=== PATIENT | male | born 1980 | race Hispanic/Latino ===

== ENCOUNTER 2020-03-02 08:27 | Inpatient (IN) | payer OTHER ==
[2020-03-02] MEDS ORDERED: methylPREDNISolone Sod Succ/PF 125 MG/2 ML VIAL ONE (09:17)
[2020-03-02] MEDS ORDERED: Ondansetron PF 4 MG/2 ML Vial ONE (09:17)
[2020-03-02] MEDS ORDERED: Azithromycin 500 MG VIAL ONE (09:17)
[2020-03-02] MEDS ORDERED: cefTRIAXone\\ROCEPHIN 2 GM VIAL ONE (09:17)
--- NOTE | 2020-03-02 09:22 | RAD ---
XR Chest 1 View Portable History: Shortness of breath Comparison: None. Findings: Lungs are hypoinflated with high-grade vascular crowding. Heart size is enlarged. No pneumo thorax. Possible airspace consolidation throughout the lungs. Impression: High-grade lung hypoinflation with possible peripheral airspace opacities. Repeat 2 views with full inspiration is recommended.
[2020-03-02] MEDS ORDERED: Albuterol 200 PUFF (6.7GM INHALER) ONE (09:47)
[2020-03-02 09:48] LABS: Hemoglobin 15.2 g/dL (14.0-18.0); Mean Corpuscular Volume 94.3 fL (78.0-98.0); Red Blood Cell (RBC) Count 4.75 mill/uL (4.70-6.10); White Blood Cell (WBC) Count 6.7 thou/uL (4.8-10.8)
[2020-03-02 09:56] LABS: ALT (SGPT) 39 U/L (8-55); AST (SGOT) 35 U/L (5-34); Alkaline Phosphatase 66 U/L (40-110); Anion Gap 15 mmol/L (10-20); BUN (Urea Nitrogen) 7 mg/dL (8.9-20.6); Bilirubin, Total 0.6 mg/dL (0.2-1.2); CK (CPK) 209 U/L (30-200); Calc. Creatinine Clearance 0 mL/min (70-130); Calcium 8.3 mg/dL (7.8-10.44); Carbon Dioxide 24 mmol/L (22-29); Chloride 100 mmol/L (98-107); Estimated GFR-MDRD Greater than 90; Globulin 2.7 g/dL (2.4-3.5); Glucose 111 mg/dL (70-105); Magnesium 1.6 mg/dL (1.6-2.6); Potassium 4.3 mmol/L (3.5-5.1); Protein, Total 6.7 g/dL (6.0-8.3); Sodium 135 mmol/L (136-145)
[2020-03-02 10:00] LABS: #Lymphocytes 0.9 thou/uL (1.20-3.40); #Monocytes 0.6 thou/uL (0.11-0.59); #Neutrophils 5.2 thou/uL (1.40-6.50); %Basophils 0.1 % (0.0-1.0); %Eosinophils 0.1 % (0.0-10.0); %Lymphocytes 12.6 % (21.0-51.0); %Monocytes 9.4 % (0.0-10.0); %Neutrophils 77.8 % (42.0-75.0); Mean Platelet Volume 8.5 fL (7.4-10.4); Platelet Count 112 thou/uL (130-400); Platelet Morphology Comment Appears Decreased; RBC Distribution Width 11.6 % (11.5-14.5); RBC Morphology Normal
[2020-03-02 10:02] LABS: Bilirubin Negative (Negative); Blood, Urine Negative (Negative); Glucose, Urine (Dipstick) Negative (Negative); Ketone, Urine Negative (Negative); Leukocyte Negative (Negative); Nitrite Negative (Negative); Protein, Urine (Dipstick) 30 mg/dL (Neg-Trace); Urobilinogen 0.2 mg/dL (Less than 2); pH, Urine 5.5 (5.0-9.0)
[2020-03-02 10:11] LABS: Clarity Clear (Clear)
[2020-03-02] MEDS ORDERED: Acetaminophen 500 MG TAB ONE (10:12)
[2020-03-02 10:13] LABS: Bacteria/HPF None Seen HPF (None Seen); RBC/HPF None Seen HPF (0-3); Squamous Epithelial 0-3 HPF (0-3); WBC/HPF None Seen HPF (0-3)
[2020-03-02 14:57] VITALS: BMI 39.1
[2020-03-02] MEDS ORDERED: Ascorbic Acid 500 mg Chewable Tablet PO SCH (16:45)
[2020-03-02] MEDS ORDERED: Zinc Sulfate 220 MG CAP PO SCH (16:45)
[2020-03-02] MEDS ORDERED: Cholecalciferol 1,000 UNITS (25 MCG) TAB PO SCH (16:45)
[2020-03-02] MEDS: Ascorbic Acid 500 mg Chewable Tablet PO SCH (16:59)
[2020-03-02] MEDS: Acetaminophen 325 MG TAB PO PRN (18:44)
--- NOTE | 2020-03-02 19:08 | HP ---
PRIMARY CARE PHYSICIAN: None. CHIEF COMPLAINT: Fever and shortness of breath. HISTORY OF PRESENT ILLNESS: The patient is a 39-year-old male with no past medical history, stating that he has had 8 days of a cough, shortness of breath and fever. He has been self quarantining; however, he was not at that time tested for COVID 19. Over the past 2 days his shortness of breath had increased and even more so over the past night. He is positive for body aches with loss of appetite and smell. Today in the ER, they performed a COVID 19 screening, blood work and a chest x- ray. PAST MEDICAL HISTORY: None. PAST SURGICAL HISTORY: None. ALLERGIES: NO KNOWN DRUG ALLERGIES. MEDICATIONS: The patient takes no home medications. SOCIAL HISTORY: The patient lives at home with his . 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 Denies any alcohol, drug, or tobacco use. FAMILY HISTORY: No significant family history. REVIEW OF SYSTEMS: All other review of systems negative unless noted in the HPI. PHYSICAL EXAMINATION: VITAL SIGNS: Temp 98.6, pulse 77, respiratory rate 18, O2 saturation 94% on 2 L. Blood pressure 127/67. GENERAL: The patient appears nontoxic, but fatigued. Head atraumatic, normocephalic. EYES: Extraocular muscles intact. PERRLA. NECK: Trachea midline. No JVD. No lymphadenopathy. RESPIRATORY: Clear to auscultation bilaterally although diminished in the bases. No wheezes, no rhonchi. No rales. CARDIOVASCULAR: Regular rate and rhythm. No gallops, no rubs, no murmurs. ABDOMEN: Nontender. No distention. Bowel sounds normal. Umbilical hernia that is reducible. EXTREMITIES: No cyanosis, no clubbing, no edema. SKIN: Warm, dry, intact. PSYCHIATRIC: Normal affect. Normal behavior. LABORATORY DATA: Chest x-ray showed high-grade lung hypoinflation with possible peripheral airspace opacities. White blood cell 6.7, hemoglobin 15.2, hematocrit 44.8. Chemistry: Sodium 135, potassium 4.3, BUN 7, creatinine 0.77, GFR greater than 90, glucose 111. Lactic acid 1.2. AST 35, ALT 39, alkaline phosphatase 66 , CK 209. Troponin negative. Urine was negative for acute urinary tract infection. COVID rapid screen was positive. IMPRESSION AND PLAN: The patient has tested positive for COVID 19 pneumonia. He will be continued on his dexamethasone 6 mg daily along with azithromycin 500 mg daily. He will also be started on vitamin C, vitamin D, and zinc. Lab work will include CRP, D-dimer and ferritin to be continued every other day to follow course of virus. The patient is to remain on oxygen until he can tolerate being on room air. Infectious Disease has been consulted for this patient. Gastrointestinal and deep venous thrombosis prophylaxis have been covered with Pepcid and Lovenox twice daily. The patient wishes to be a full code. His surrogate decision maker is his , Tanvi Delatorre. The patient has been discussed with Dr. Jain. Job ID: [id number] [facility]ITAL[facility]
[2020-03-02] MEDS: Enoxaparin Sodium 40 MG/0.4 ML SYRINGE SC SCH (21:04)
[2020-03-03] MEDS: Acetaminophen 325 MG TAB PO PRN ×3 (00:33→17:24)
[2020-03-03 05:12] LABS: #Lymphocytes 1.1 thou/uL (1.20-3.40); #Monocytes 0.5 thou/uL (0.11-0.59); #Neutrophils 8.4 thou/uL (1.40-6.50); %Basophils 0.2 % (0.0-1.0); %Eosinophils 0.2 % (0.0-10.0); %Lymphocytes 10.7 % (21.0-51.0); %Monocytes 5.2 % (0.0-10.0); %Neutrophils 83.7 % (42.0-75.0); Hemoglobin 14.5 g/dL (14.0-18.0); Platelet Count 125 thou/uL (130-400); RBC Distribution Width 11.7 % (11.5-14.5); Red Blood Cell (RBC) Count 4.53 mill/uL (4.70-6.10); White Blood Cell (WBC) Count 10.1 thou/uL (4.8-10.8)
[2020-03-03 05:44] LABS: Anion Gap 14 mmol/L (10-20); BUN (Urea Nitrogen) 12 mg/dL (8.9-20.6); Calc. Creatinine Clearance 228 mL/min (70-130); Calcium 8.6 mg/dL (7.8-10.44); Carbon Dioxide 24 mmol/L (22-29); Chloride 105 mmol/L (98-107); Estimated GFR-MDRD Greater than 90; Glucose 152 mg/dL (70-105); Potassium 4.3 mmol/L (3.5-5.1); Sodium 139 mmol/L (136-145)
[2020-03-03] MEDS: cefTRIAXone\\ROCEPHIN 2 GM in Sodium Chloride 0.9% 100 ML IVPB SCH (07:50)
[2020-03-03] MEDS: Cholecalciferol 1,000 UNITS (25 MCG) TAB PO SCH (07:52)
[2020-03-03] MEDS: Ascorbic Acid 500 mg Chewable Tablet PO SCH (07:52)
[2020-03-03] MEDS: Enoxaparin Sodium 40 MG/0.4 ML SYRINGE SC SCH ×2 (07:53→19:36)
[2020-03-03] MEDS: Zinc Sulfate 220 MG CAP PO SCH (07:53)
[2020-03-03] MEDS: Dexamethasone 4 mg/ml Vial SLOW IVP SCH (07:53)
[2020-03-03] MEDS ORDERED: Cholecalciferol (Vitamin D3) 400 UNITS TAB PO SCH (09:00)
[2020-03-03] MEDS: Vancomycin 1.5 GRAM/300 ML BAG 1.5 GM in Premix Bag 1 BAG IVPB SCH ×3 (10:18→23:41)
[2020-03-03] MEDS: Azithromycin 500 MG in Sodium Chloride 0.9% 250 ML 250 ML IVPB SCH (12:17)
[2020-03-03] MEDS ORDERED: ALPRAZolam 0.25 MG TAB PO SCH (15:00)
[2020-03-03 16:38] LABS: Actual Bicarbonate (HCO3a) 23.8 mEq/L (22-28); Base Excess (BEa) -0.3 mEq/L (-2.0 to +3.0); CO2 Tension 37.7 mmHg (35.0-45.0); Calcium, Ionized (arterial) 1.13 mmol/L (1.12-1.30); Carboxyhemoglobin (COHb) 0.3 gm% (0.0-3.0); Hemoglobin (Hb) 14.9 g/dL (14.0-18.0); O2 Tension (PaO2), arterial 60.1 mmHg (80.0-100.0); Potassium - ABG Lab 4.15 mmol/L (3.70-5.30); pH, Arterial 7.42 (7.35-7.45)
[2020-03-03 16:39] LABS: ALV-art Gradient 149.455 (0-20); Puncture Site LRA
--- NOTE | 2020-03-03 17:15 | PDOC.HOSPP ---
- Subjective Encounter Date: 03/03/20 Encounter Time: 17:05 Subjective: Pt seen for followup re; COVID-19 pneumonia. Cough+, SOB+. - Objective Vital Signs & Weight: Vital Signs (12 hours) Temp Pulse Resp BP Pulse Ox 03/03/20 12:15 98.3 F 73 32 H 119/55 L 99 03/03/20 07:45 99.3 F 78 32 H 120/66 99 Weight Weight 235 lb I&O: 03/02/20 03/03/20 03/04/20 06:59 06:59 06:59 Intake Total 920 Balance 920 Result Diagrams: 03/03/20 04:50 03/03/20 04:50 Additional Labs: Labs and MARs reviewed by me EKG Reviewed by me: Yes (Tele: NSR) Hospitalist ROS - Review of Systems Respiratory: reports: cough, shortness of breath, SOB with excertion, sputum. denies: dry, hemoptysis, pleuritic pain, wheezing Cardiovascular: denies: chest pain, palpitations, orthopnea, paroxysmal noc. dyspnea, edema, light headedness, other - Medication Medications: Active Medications Generic Name Dose Route Start Last Admin Trade Name Freq PRN Reason Stop Dose Admin Acetaminophen 650 mg 03/02/20 16:29 03/03/20 08:29 Tylenol PO 650 mg Q4H PRN Administration Headache/Fever/Mild Pain (1-3) Ascorbic Acid 1,000 mg 03/02/20 09:00 03/03/20 07:52 Vitamin C PO 1,000 mg DAILY SAW Administration Cholecalciferol 1,000 units 03/03/20 09:00 03/03/20 07:52 Vitamin D3 PO 1,000 units DAILY SAW Administration Dexamethasone 6 mg 03/03/20 09:00 03/03/20 07:53 Decadron SLOW IVP 6 mg DAILY SAW Administration Enoxaparin Sodium 40 mg 03/02/20 21:00 03/03/20 07:53 Lovenox SC 40 mg BID SAW Administration Azithromycin 500 mg/ Sodium 250 mls @ 250 mls/hr 03/03/20 10:00 03/03/20 12: 17 Chloride IVPB 250 mls 1000 SAW Administration Ceftriaxone Sodium 2 gm/ 100 mls @ 200 mls/hr 03/03/20 09:00 07/15/20 07:50 Sodium Chloride IVPB 100 mls 0900 SAW Administration Vancomycin HCl 1.5 gm/ Device 300 mls @ 200 mls/hr 03/03/20 08:00 03/03/20 10 :18 IVPB 300 mls Q8H SAW Administration Pantoprazole Sodium 40 mg 03/03/20 09:00 03/03/20 07:52 Protonix PO 40 mg DAILY SAW Administration Sodium Chloride 10 ml 03/03/20 09:00 03/03/20 07:51 Flush - Normal Saline IVF 10 ml Q12HR SAW Administration Zinc Sulfate 220 mg 03/03/20 09:00 03/03/20 07:53 Zinc Sulfate PO 220 mg DAILY SAW Administration - Exam General - other findings: Morbid obesity Eye: anicteric sclera ENT: moist mucosa Neck: supple Heart: RRR Respiratory: CTAB Gastrointestinal: soft, non-tender Extremities: no cyanosis Psychiatric: normal behavior Hosp A/P (1) Pneumonia due to COVID-19 virus Code(s): U07.1 - COVID-19; J12.89 - OTHER VIRAL PNEUMONIA Status: Acute (2) Thrombocytopenia Code(s): D69.6 - THROMBOCYTOPENIA, UNSPECIFIED Status: Acute (3) Lymphopenia Status: Acute - Plan continue antibiotics, out of bed/ambulate Continue dexamethasone/ vit C/zinc/vitD. Pt is also on antibiotics to cover possibility pof bacterial infection. Follow labs.
[2020-03-03] MEDS ORDERED: Benzonatate 100 MG CAP PO PRN (23:33)
[2020-03-04] MEDS ORDERED: Albuterol Sulfate 1.25 MG/3 ML NEB NEB PRN (00:03)
[2020-03-04] MEDS: ALPRAZolam 0.25 MG TAB PO PRN ×2 (00:38→20:37)
[2020-03-04] MEDS: Albuterol 200 PUFF (6.7GM INHALER) INH PRN (00:38)
[2020-03-04 00:39] LABS: Actual Bicarbonate (HCO3a) 27.2 mEq/L (22-28); Base Excess (BEa) 1.8 mEq/L (-2.0 to +3.0); CO2 Tension 45.7 mmHg (35.0-45.0); Calcium, Ionized (arterial) 1.14 mmol/L (1.12-1.30); Carboxyhemoglobin (COHb) 0.1 gm% (0.0-3.0); Hemoglobin (Hb) 14.4 g/dL (14.0-18.0); O2 Tension (PaO2), arterial 60.9 mmHg (80.0-100.0); pH, Arterial 7.39 (7.35-7.45)
[2020-03-04 00:44] LABS: ALV-art Gradient 138.655 (0-20)
[2020-03-04] MEDS: Acetaminophen 325 MG TAB PO PRN ×2 (04:03→20:36)
[2020-03-04 05:15] LABS: #Neutrophils 10.7 thou/uL (1.40-6.50); %Basophils 0.1 % (0.0-1.0); %Eosinophils 0.2 % (0.0-10.0); %Lymphocytes 7.5 % (21.0-51.0); %Monocytes 7.7 % (0.0-10.0); %Neutrophils 84.5 % (42.0-75.0); Hemoglobin 13.6 g/dL (14.0-18.0); Mean Corpuscular HGB CONC 32.8 g/dL (32.0-36.0); Mean Corpuscular Volume 94.7 fL (78.0-98.0); Mean Platelet Volume 8.9 fL (7.4-10.4); Platelet Count 169 thou/uL (130-400); RBC Distribution Width 11.5 % (11.5-14.5); Red Blood Cell (RBC) Count 4.39 mill/uL (4.70-6.10); White Blood Cell (WBC) Count 12.7 thou/uL (4.8-10.8)
[2020-03-04 05:34] LABS: Anion Gap 13 mmol/L (10-20); BUN (Urea Nitrogen) 13 mg/dL (8.9-20.6); CRP (Inflammatory) 4.77 mg/dL (= or < 0.5); Calc. Creatinine Clearance 261 mL/min (70-130); Calcium 8.4 mg/dL (7.8-10.44); Carbon Dioxide 24 mmol/L (22-29); Chloride 108 mmol/L (98-107); Estimated GFR-MDRD Greater than 90; Glucose 120 mg/dL (70-105); Potassium 4.1 mmol/L (3.5-5.1); Sodium 141 mmol/L (136-145)
[2020-03-04] MEDS: Enoxaparin Sodium 40 MG/0.4 ML SYRINGE SC SCH ×2 (08:06→20:08)
[2020-03-04] MEDS: cefTRIAXone\\ROCEPHIN 2 GM in Sodium Chloride 0.9% 100 ML IVPB SCH (08:06)
[2020-03-04] MEDS: Ascorbic Acid 500 mg Chewable Tablet PO SCH (08:06)
[2020-03-04] MEDS: Cholecalciferol 1,000 UNITS (25 MCG) TAB PO SCH (08:06)
[2020-03-04] MEDS: Dexamethasone 4 mg/ml Vial SLOW IVP SCH (08:07)
[2020-03-04 08:30] LABS: Vancomycin, Trough 12.1 ug/mL
[2020-03-04] MEDS ORDERED: Vancomycin HCl 1.75 GM in Sodium Chloride 0.9% 500 ML IVPB SCH (09:00)
[2020-03-04] MEDS ORDERED: Benzonatate 100 MG CAP PO SCH (10:45)
[2020-03-04] MEDS: Zinc Sulfate 220 MG CAP PO SCH (11:38)
[2020-03-04] MEDS: Azithromycin 500 MG in Sodium Chloride 0.9% 250 ML 250 ML IVPB SCH (11:38)
[2020-03-04] MEDS: Vancomycin 1.5 GRAM/300 ML BAG 1.5 GM in Premix Bag 1 BAG IVPB SCH (14:15)
[2020-03-04] MEDS ORDERED: REMDESIVIR (EUA) 200 MG in Sodium Chloride 0.9% 250 ML 210 ML IV SCH (17:00)
--- NOTE | 2020-03-04 17:23 | CON ---
DATE OF CONSULTATION: 03/04/2020 REASON FOR CONSULTATION: COVID pneumonia. 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 He stayed at home until symptoms became intolerable and he came to the hospital. He was admitted and tested positive for COVID-19. He is quite dyspneic. He has a hard time in speaking in full sentences. He has some headaches intermittently and some nausea. No chest pain. No abdominal pain or diarrhea. No genitourinary symptoms. No joint symptoms or neurological issues. MEDICAL HISTORY: Obesity. 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 . Family is in [place]. ALLERGIES: NONE. MEDICATION LIST: At the moment, he is on: 1. Azithromycin. 2. Ceftriaxone. 3. Decadron. 4. Vancomycin. FAMILY HISTORY: Noncontributory. PHYSICAL EXAMINATION: VITAL SIGNS: T-max 100.1, BP 120/60, pulse 69, respirations 40, and saturating 91 of 4 L. SKIN: Normal. HEENT: Ocular movements conjugate. Oral cavity normal. NECK: Supple. No jugular vein distention. LUNGS: Very restricted breath sounds. He cannot take deep breaths. ABDOMEN: Soft, not distended. EXTREMITIES: No joint inflammatory activity. Moves extremities equally. NEUROLOGIC: His cognitive function appears to be intact. LABORATORY DATA: White cell count 6.7 and now 12.7, hemoglobin 13.6, platelets 169, and 84% neutrophils. His D-dimer is 0.41. Creatinine 0.64. Ferritin was 1300 and now is 819. CRP was 15 and now is 4. Chest x-ray with high-grade lung hypoinflation, peripheral airspace opacities. ASSESSMENT: Severe COVID pneumonia, a very borderline saturation even under 4 L. We will go ahead and start remdesivir and continue Decadron to see if we can switch him to high-flow nasal cannula O2 supplementation. He is really struggling to maintain this oxygenation and may have to be transferred to the [facility]. Job ID: [id number]
--- NOTE | 2020-03-04 17:38 | PRG ---
DATE OF SERVICE: 03/04/2020 This is a dictation of a consent for remdesivir administration. I have discussed the emergency use authorization for remdesivir and he meets criteria right at 10 days, but is severe with high-flow oxygen requirements. I discussed with him the potential adverse reactions, particularly liver and kidney toxicity and then monitoring that will be implemented for early detection. Also discussed that drug has been shown to reduce the length of illness. He understood and agreed with the intervention. Job ID: [id number]
[2020-03-04] MEDS: Benzonatate 100 MG CAP PO SCH ×2 (17:45→20:08)
[2020-03-04 18:03] LABS: #Lymphocytes 0.6 thou/uL (1.20-3.40); #Monocytes 0.7 thou/uL (0.11-0.59); #Neutrophils 7.1 thou/uL (1.40-6.50); %Basophils 0.2 % (0.0-1.0); %Eosinophils 0.5 % (0.0-10.0); %Lymphocytes 7.6 % (21.0-51.0); %Monocytes 7.8 % (0.0-10.0); %Neutrophils 83.9 % (42.0-75.0); Hemoglobin 13.7 g/dL (14.0-18.0); Mean Corpuscular HGB CONC 32.9 g/dL (32.0-36.0); Mean Corpuscular Hemoglobin 31.2 pg (27.0-31.0); Mean Platelet Volume 8.7 fL (7.4-10.4); Platelet Count 198 thou/uL (130-400); RBC Distribution Width 11.6 % (11.5-14.5); Red Blood Cell (RBC) Count 4.37 mill/uL (4.70-6.10); White Blood Cell (WBC) Count 8.4 thou/uL (4.8-10.8)
[2020-03-04 18:29] LABS: ALT (SGPT) 69 U/L (8-55); AST (SGOT) 45 U/L (5-34); Albumin 3.6 g/dL (3.5-5.0); Alkaline Phosphatase 59 U/L (40-110); Anion Gap 12 mmol/L (10-20); BUN (Urea Nitrogen) 15 mg/dL (8.9-20.6); Bilirubin, Total 0.3 mg/dL (0.2-1.2); Calc. Creatinine Clearance 242 mL/min (70-130); Calcium 8.5 mg/dL (7.8-10.44); Carbon Dioxide 28 mmol/L (22-29); Chloride 107 mmol/L (98-107); Estimated GFR-MDRD Greater than 90; Glucose 124 mg/dL (70-105); Potassium 4.3 mmol/L (3.5-5.1); Protein, Total 6.6 g/dL (6.0-8.3); Sodium 143 mmol/L (136-145)
--- NOTE | 2020-03-04 18:30 | PDOC.HOSPP ---
- Subjective Encounter Date: 03/04/20 Encounter Time: 10:40 Subjective: Pt seen for followup for pneumonia due to COVID-19 virus. Feels slightly better. - Objective Vital Signs & Weight: Vital Signs (12 hours) Temp Pulse Resp BP Pulse Ox 03/04/20 17:21 96 03/04/20 17:00 99.1 F 76 28 H 133/69 96 03/04/20 11:45 98 F 69 40 H 122/67 91 L 03/04/20 08:15 98.9 F 71 36 H 120/67 92 L Weight Weight 265 lb 4.8 oz I&O: 03/03/20 03/04/20 03/05/20 06:59 06:59 06:59 Intake Total 920 1190 Output Total 575 Balance 920 615 Result Diagrams: 03/04/20 17:54 03/04/20 17:53 Additional Labs: Labs and MARs reviewed by me EKG Reviewed by me: Yes (Tele: NSR) Hospitalist ROS - Review of Systems Respiratory: reports: cough, sputum. denies: dry, shortness of breath, hemoptysis, SOB with excertion, pleuritic pain, wheezing Cardiovascular: denies: chest pain, palpitations, orthopnea, paroxysmal noc. dyspnea, edema, light headedness - Medication Medications: Active Medications Generic Name Dose Route Start Last Admin Trade Name Freq PRN Reason Stop Dose Admin Acetaminophen 650 mg 03/02/20 16:29 03/04/20 04:03 Tylenol PO 650 mg Q4H PRN Administration Headache/Fever/Mild Pain (1-3) Albuterol Sulfate 1 puff 03/04/20 00:06 03/04/20 00:38 Proventil Hfa INH 1 puff Q8H PRN Administration Wheezing Alprazolam 0.25 mg 03/03/20 23:32 03/04/20 00:38 Xanax PO 0.25 mg TIDPRN PRN Administration Anxiety Ascorbic Acid 1,000 mg 03/02/20 09:00 03/04/20 08:06 Vitamin C PO 1,000 mg DAILY SAW Administration Benzonatate 100 mg 03/04/20 15:00 03/04/20 17:45 Tessalon PO Not Given TID SAW Cholecalciferol 1,000 units 03/03/20 09:00 03/04/20 08:06 Vitamin D3 PO 1,000 units DAILY SAW Administration Dexamethasone 6 mg 03/03/20 09:00 03/04/20 08:07 Decadron SLOW IVP 6 mg DAILY SAW Administration Enoxaparin Sodium 40 mg 03/02/20 21:00 03/04/20 08:06 Lovenox SC 40 mg BID SAW Administration REMDESIVIR (EUA) 200 mg/ 250 mls @ 250 mls/hr 03/04/20 17:00 03/04/20 18:03 Sodium Chloride IV 03/04/20 19:00 250 mls NOW SAW Administration Pantoprazole Sodium 40 mg 03/03/20 09:00 03/04/20 08:06 Protonix PO 40 mg DAILY SAW Administration Sodium Chloride 10 ml 03/03/20 09:00 03/04/20 09:37 Flush - Normal Saline IVF 10 ml Q12HR SAW Administration Zinc Sulfate 220 mg 03/03/20 09:00 03/04/20 11:38 Zinc Sulfate PO Not Given DAILY SAW - Exam General Appearance: awake alert General - other findings: Morbisly obese Eye: anicteric sclera ENT: moist mucosa Neck: supple, symmetric Heart: RRR Respiratory: CTAB Gastrointestinal: soft, non-tender Extremities: no clubbing Musculoskeletal: normal tone, normal strength Psychiatric: normal affect, normal behavior Hosp A/P (1) Pneumonia due to COVID-19 virus Code(s): U07.1 - COVID-19; J12.89 - OTHER VIRAL PNEUMONIA Status: Acute (2) Thrombocytopenia Code(s): D69.6 - THROMBOCYTOPENIA, UNSPECIFIED Status: Acute (3) Lymphopenia Status: Acute - Plan out of bed/ambulate, DVT proph w/lovenox Pt started on Remdesivir. Continue dexamethasone/ vit C/zinc/vitD. Antibiotics discontinued. Follow labs.
[2020-03-05] MEDS: Albuterol 200 PUFF (6.7GM INHALER) INH PRN (03:15)
[2020-03-05 05:21] LABS: #Eosinphils 0.1 thou/uL (0.0-0.7); #Lymphocytes 1.2 thou/uL (1.20-3.40); #Neutrophils 4.6 thou/uL (1.40-6.50); %Eosinophils 1.3 % (0.0-10.0); %Lymphocytes 16.8 % (21.0-51.0); %Monocytes 14.9 % (0.0-10.0); Hemoglobin 13.5 g/dL (14.0-18.0); Mean Corpuscular HGB CONC 33.4 g/dL (32.0-36.0); Mean Corpuscular Hemoglobin 31.9 pg (27.0-31.0); Mean Corpuscular Volume 95.5 fL (78.0-98.0); Platelet Count 184 thou/uL (130-400); RBC Distribution Width 11.7 % (11.5-14.5); Red Blood Cell (RBC) Count 4.22 mill/uL (4.70-6.10); White Blood Cell (WBC) Count 6.9 thou/uL (4.8-10.8)
[2020-03-05 05:33] LABS: ALT (SGPT) 64 U/L (8-55); AST (SGOT) 37 U/L (5-34); Albumin 3.5 g/dL (3.5-5.0); Alkaline Phosphatase 55 U/L (40-110); Anion Gap 11 mmol/L (10-20); BUN (Urea Nitrogen) 17 mg/dL (8.9-20.6); Bilirubin, Direct 0.2 mg/dL (0.1-0.3); Bilirubin, Total 0.3 mg/dL (0.2-1.2); Calc. Creatinine Clearance 257 mL/min (70-130); Calcium 8.5 mg/dL (7.8-10.44); Carbon Dioxide 29 mmol/L (22-29); Chloride 107 mmol/L (98-107); Estimated GFR-MDRD Greater than 90; Glucose 103 mg/dL (70-105); Potassium 4.4 mmol/L (3.5-5.1); Protein, Total 6.3 g/dL (6.0-8.3); Sodium 143 mmol/L (136-145)
[2020-03-05] MEDS: Acetaminophen 325 MG TAB PO PRN (06:01)
[2020-03-05] MEDS: ALPRAZolam 0.25 MG TAB PO PRN ×2 (06:01→20:32)
[2020-03-05] MEDS: Dexamethasone 4 mg/ml Vial SLOW IVP SCH (09:08)
[2020-03-05] MEDS: Cholecalciferol 1,000 UNITS (25 MCG) TAB PO SCH (09:08)
[2020-03-05] MEDS: Benzonatate 100 MG CAP PO SCH ×3 (09:08→20:32)
[2020-03-05] MEDS: Enoxaparin Sodium 40 MG/0.4 ML SYRINGE SC SCH ×2 (09:09→20:30)
[2020-03-05] MEDS: Zinc Sulfate 220 MG CAP PO SCH (09:12)
[2020-03-05] MEDS: Ascorbic Acid 500 mg Chewable Tablet PO SCH (09:12)
[2020-03-05] MEDS: REMDESIVIR (EUA) 100 MG in Sodium Chloride 0.9% 250 ML 230 ML IV SCH (16:20)
--- NOTE | 2020-03-05 19:21 | PDOC.HOSPP ---
- Subjective Encounter Date: 03/05/20 Encounter Time: 08:00 Subjective: Pt seen for followup for COVID19 PNA. Feels slightly better. - Objective Vital Signs & Weight: Vital Signs (12 hours) Temp Pulse Resp BP Pulse Ox 03/05/20 16:40 98.5 F 47 L 28 H 124/75 100 03/05/20 11:00 98.3 F 58 L 32 H 123/64 98 03/05/20 08:00 98.2 F 61 40 H 133/71 99 Weight Weight 265 lb 4.8 oz I&O: 03/04/20 03/05/20 03/06/20 06:59 06:59 06:59 Intake Total 1190 2360 240 Output Total 575 375 800 Balance 615 1985 -560 Result Diagrams: 03/05/20 04:29 03/05/20 04:28 Additional Labs: Labs and MARs reviewed by me EKG Reviewed by me: Yes (Tele: NSR) Hospitalist ROS - Review of Systems Respiratory: reports: cough, SOB with excertion, sputum Cardiovascular: denies: chest pain, palpitations, orthopnea, paroxysmal noc. dyspnea, edema, light headedness Gastrointestinal: denies: nausea, vomiting, abdominal pain, diarrhea, constipation, melena, hematochezia - Medication Medications: Active Medications Generic Name Dose Route Start Last Admin Trade Name Freq PRN Reason Stop Dose Admin Acetaminophen 650 mg 03/02/20 16:29 03/05/20 06:01 Tylenol PO 650 mg Q4H PRN Administration Headache/Fever/Mild Pain (1-3) Albuterol Sulfate 1 puff 03/04/20 00:06 03/05/20 03:15 Proventil Hfa INH 1 puff Q8H PRN Administration Wheezing Alprazolam 0.25 mg 03/03/20 23:32 03/05/20 06:01 Xanax PO 0.25 mg TIDPRN PRN Administration Anxiety Ascorbic Acid 1,000 mg 03/02/20 09:00 03/05/20 09:12 Vitamin C PO 1,000 mg DAILY SAW Administration Benzonatate 100 mg 03/04/20 15:00 03/05/20 16:20 Tessalon PO 100 mg TID SAW Administration Cholecalciferol 1,000 units 03/03/20 09:00 03/05/20 09:08 Vitamin D3 PO 1,000 units DAILY SAW Administration Dexamethasone 6 mg 03/03/20 09:00 03/05/20 09:08 Decadron SLOW IVP 6 mg DAILY SAW Administration Enoxaparin Sodium 40 mg 03/02/20 21:00 03/05/20 09:09 Lovenox SC 40 mg BID SAW Administration REMDESIVIR (EUA) 100 mg/ 250 mls @ 250 mls/hr 03/05/20 17:00 03/05/20 16:20 Sodium Chloride IV 03/08/20 17:59 250 mls 1700 SAW Administration Pantoprazole Sodium 40 mg 03/03/20 09:00 03/05/20 09:09 Protonix PO 40 mg DAILY SAW Administration Sodium Chloride 10 ml 03/03/20 09:00 03/05/20 09:09 Flush - Normal Saline IVF 10 ml Q12HR SAW Administration Sodium Chloride 10 ml 03/03/20 06:39 03/05/20 16:20 Flush - Normal Saline IVF 10 ml PRN PRN Administration Saline Flush Zinc Sulfate 220 mg 03/03/20 09:00 03/05/20 09:12 Zinc Sulfate PO 220 mg DAILY SAW Administration - Exam General - other findings: Morbis obesity Eye: anicteric sclera ENT: no oropharyngeal lesions Neck: supple Heart: RRR Respiratory: CTAB Gastrointestinal: soft, non-tender Musculoskeletal: no muscle wasting Psychiatric: normal affect, normal behavior Hosp A/P (1) Pneumonia due to COVID-19 virus Code(s): U07.1 - COVID-19; J12.89 - OTHER VIRAL PNEUMONIA Status: Acute (2) Thrombocytopenia Code(s): D69.6 - THROMBOCYTOPENIA, UNSPECIFIED Status: Acute (3) Lymphopenia Status: Acute - Plan Continue Remdesivir. Continue dexamethasone/ vit C/zinc/vitD. Pt is on high-flow oxygen.
[2020-03-06] MEDS: Albuterol 200 PUFF (6.7GM INHALER) INH PRN (00:42)
[2020-03-06 05:15] LABS: ALT (SGPT) 64 U/L (8-55); AST (SGOT) 26 U/L (5-34); Albumin 3.5 g/dL (3.5-5.0); Alkaline Phosphatase 54 U/L (40-110); Bilirubin, Direct 0.2 mg/dL (0.1-0.3); Bilirubin, Total 0.3 mg/dL (0.2-1.2); Protein, Total 6.3 g/dL (6.0-8.3)
[2020-03-06] MEDS: Ascorbic Acid 500 mg Chewable Tablet PO SCH (08:28)
[2020-03-06] MEDS: Benzonatate 100 MG CAP PO SCH ×3 (08:29→19:10)
[2020-03-06] MEDS: Cholecalciferol 1,000 UNITS (25 MCG) TAB PO SCH (08:29)
[2020-03-06] MEDS: Enoxaparin Sodium 40 MG/0.4 ML SYRINGE SC SCH ×2 (08:29→19:10)
[2020-03-06] MEDS: Dexamethasone 4 mg/ml Vial SLOW IVP SCH (08:29)
[2020-03-06] MEDS: Zinc Sulfate 220 MG CAP PO SCH (08:29)
--- NOTE | 2020-03-06 14:42 | PDOC.HOSPP ---
- Subjective Encounter Date: 03/06/20 Encounter Time: 08:00 Subjective: no overnight events. This morning, overall feeling and breathing better but remains short of breath on HFNC. Otherwise no complainst. - Objective Vital Signs & Weight: Vital Signs (12 hours) Temp Pulse Resp BP Pulse Ox 03/06/20 12:36 97 F L 58 L 28 H 131/72 97 03/06/20 08:50 98.6 F 50 L 28 H 135/73 100 03/06/20 04:00 99.1 F 48 L 26 H 125/93 H 99 Weight Weight 265 lb 4.8 oz I&O: 03/05/20 03/06/20 03/07/20 06:59 06:59 06:59 Intake Total 2360 1020 360 Output Total 375 1200 Balance 1985 -180 360 Result Diagrams: 03/05/20 04:29 03/05/20 04:28 Hospitalist ROS - Review of Systems Constitutional: denies: fever, chills, sweats Respiratory: reports: cough, shortness of breath, SOB with excertion. denies: dry, hemoptysis, pleuritic pain, sputum Cardiovascular: denies: chest pain, palpitations, orthopnea, paroxysmal noc. dyspnea Gastrointestinal: denies: nausea, vomiting, abdominal pain Genitourinary: denies: dysuria, frequency, incontinence - Medication Medications: Active Medications Generic Name Dose Route Start Last Admin Trade Name Freq PRN Reason Stop Dose Admin Acetaminophen 650 mg 03/02/20 16:29 03/05/20 06:01 Tylenol PO 650 mg Q4H PRN Administration Headache/Fever/Mild Pain (1-3) Albuterol Sulfate 1 puff 03/04/20 00:06 03/06/20 00:42 Proventil Hfa INH 1 puff Q8H PRN Administration Wheezing Alprazolam 0.25 mg 03/03/20 23:32 03/05/20 20:32 Xanax PO 0.25 mg TIDPRN PRN Administration Anxiety Ascorbic Acid 1,000 mg 03/02/20 09:00 03/06/20 08:28 Vitamin C PO 1,000 mg DAILY SAW Administration Benzonatate 100 mg 03/04/20 15:00 03/06/20 08:29 Tessalon PO 100 mg TID SAW Administration Cholecalciferol 1,000 units 03/03/20 09:00 03/06/20 08:29 Vitamin D3 PO 1,000 units DAILY SAW Administration Dexamethasone 6 mg 03/03/20 09:00 03/06/20 08:29 Decadron SLOW IVP 6 mg DAILY SAW Administration Enoxaparin Sodium 40 mg 03/02/20 21:00 03/06/20 08:29 Lovenox SC 40 mg BID SAW Administration REMDESIVIR (EUA) 100 mg/ 250 mls @ 250 mls/hr 03/05/20 17:00 03/05/20 16:20 Sodium Chloride IV 03/08/20 17:59 250 mls 1700 SAW Administration Pantoprazole Sodium 40 mg 03/03/20 09:00 03/06/20 08:29 Protonix PO 40 mg DAILY SAW Administration Sodium Chloride 10 ml 03/03/20 09:00 03/06/20 08:29 Flush - Normal Saline IVF 10 ml Q12HR SAW Administration Sodium Chloride 10 ml 03/03/20 06:39 03/05/20 16:20 Flush - Normal Saline IVF 10 ml PRN PRN Administration Saline Flush Zinc Sulfate 220 mg 03/03/20 09:00 03/06/20 08:29 Zinc Sulfate PO 220 mg DAILY SAW Administration - Exam General Appearance: NAD, awake alert Neck: no JVD Heart: RRR, no murmur, no gallops, no rubs Heart - other findings: bradycardia in the 40s, sinus on telemetry Respiratory: CTAB, no wheezes, no rales, no ronchi Gastrointestinal: soft, non-tender, non-distended, normal bowel sounds Extremities: no edema Psychiatric: normal affect, normal behavior, A&O x 3 Hosp A/P - Plan (1) Pneumonia due to COVID-19 virus Code(s): U07.1 - COVID-19; J12.89 - OTHER VIRAL PNEUMONIA Status: Acute (2) Thrombocytopenia Code(s): D69.6 - THROMBOCYTOPENIA, UNSPECIFIED Status: Acute (3) Lymphopenia Status: Acute - Plan Continue Remdesivir. Continue dexamethasone/ vit C/zinc/vitD. Downtitrate HFNC to keep oxygen saturation >92%
[2020-03-06] MEDS: REMDESIVIR (EUA) 100 MG in Sodium Chloride 0.9% 250 ML 230 ML IV SCH (17:02)
[2020-03-07 05:45] LABS: ALT (SGPT) 66 U/L (8-55); AST (SGOT) 28 U/L (5-34); Albumin 3.7 g/dL (3.5-5.0); Alkaline Phosphatase 55 U/L (40-110); Bilirubin, Direct 0.3 mg/dL (0.1-0.3); Bilirubin, Total 0.5 mg/dL (0.2-1.2); Protein, Total 6.5 g/dL (6.0-8.3)
[2020-03-07] MEDS ORDERED: Benzonatate 100 MG CAP PO PRN (09:01)
[2020-03-07] MEDS: Enoxaparin Sodium 40 MG/0.4 ML SYRINGE SC SCH ×2 (09:04→20:15)
[2020-03-07] MEDS: Dexamethasone 4 mg/ml Vial SLOW IVP SCH (09:05)
[2020-03-07] MEDS: Zinc Sulfate 220 MG CAP PO SCH (09:05)
[2020-03-07] MEDS: Ascorbic Acid 500 mg Chewable Tablet PO SCH (09:06)
[2020-03-07] MEDS: Cholecalciferol 1,000 UNITS (25 MCG) TAB PO SCH (09:06)
[2020-03-07] MEDS: Benzonatate 100 MG CAP PO SCH (09:29)
--- NOTE | 2020-03-07 15:27 | PDOC.HOSPP ---
- Subjective Encounter Date: 03/07/20 Encounter Time: 09:00 Subjective: no overnight events. this morning, feeling and breathing better. has no complaints. continues to have asymptomatic bradycardia - Objective Vital Signs & Weight: Vital Signs (12 hours) Temp Pulse Resp BP Pulse Ox 03/07/20 13:10 98.1 F 50 L 14 102/54 L 96 03/07/20 03:54 98.8 F 47 L 22 H 107/70 95 Weight Weight 265 lb 4.8 oz I&O: 03/06/20 03/07/20 03/08/20 06:59 06:59 06:59 Intake Total 1020 1340 360 Output Total 1200 1500 Balance -180 -160 360 Result Diagrams: 03/05/20 04:29 03/05/20 04:28 Hospitalist ROS - Review of Systems Constitutional: denies: fever, chills, sweats, weakness, malaise, other Respiratory: reports: cough, dry. denies: shortness of breath, hemoptysis, SOB with excertion, pleuritic pain, sputum, wheezing, other Cardiovascular: denies: chest pain, palpitations, orthopnea, paroxysmal noc. dyspnea, edema, light headedness, other Gastrointestinal: denies: nausea, vomiting, abdominal pain, diarrhea, constipation, melena, hematochezia, other - Medication Medications: Active Medications Generic Name Dose Route Start Last Admin Trade Name Freq PRN Reason Stop Dose Admin Acetaminophen 650 mg 03/02/20 16:29 03/05/20 06:01 Tylenol PO 650 mg Q4H PRN Administration Headache/Fever/Mild Pain (1-3) Albuterol Sulfate 1 puff 03/04/20 00:06 03/06/20 00:42 Proventil Hfa INH 1 puff Q8H PRN Administration Wheezing Ascorbic Acid 1,000 mg 03/02/20 09:00 03/07/20 09:06 Vitamin C PO 1,000 mg DAILY SAW Administration Cholecalciferol 1,000 units 03/03/20 09:00 03/07/20 09:06 Vitamin D3 PO 1,000 units DAILY SAW Administration Dexamethasone 6 mg 03/03/20 09:00 03/07/20 09:05 Decadron SLOW IVP 6 mg DAILY SAW Administration Enoxaparin Sodium 40 mg 03/02/20 21:00 03/07/20 09:04 Lovenox SC 40 mg BID SAW Administration REMDESIVIR (EUA) 100 mg/ 250 mls @ 250 mls/hr 03/05/20 17:00 03/06/20 17:02 Sodium Chloride IV 03/08/20 17:59 250 mls 1700 SAW Administration Pantoprazole Sodium 40 mg 03/03/20 09:00 03/07/20 09:06 Protonix PO 40 mg DAILY SAW Administration Sodium Chloride 10 ml 03/03/20 09:00 03/07/20 09:06 Flush - Normal Saline IVF 10 ml Q12HR SAW Administration Sodium Chloride 10 ml 03/03/20 06:39 03/05/20 16:20 Flush - Normal Saline IVF 10 ml PRN PRN Administration Saline Flush Zinc Sulfate 220 mg 03/03/20 09:00 03/07/20 09:05 Zinc Sulfate PO 220 mg DAILY SAW Administration - Exam General Appearance: NAD, awake alert Neck: no JVD Heart: RRR, no murmur, no gallops, no rubs Respiratory: CTAB, no wheezes, no rales, no ronchi Respiratory - other findings: diffusely reduced breath sounds; on HFNC Extremities: no edema Psychiatric: normal affect, normal behavior, A&O x 3 Hosp A/P - Plan (1) Pneumonia due to COVID-19 virus Code(s): U07.1 - COVID-19; J12.89 - OTHER VIRAL PNEUMONIA Status: Acute #asymptomatic bradycardia -case reports of covid-induced transient bradycardia have been reported -telemetry showing sinus bradycardia without conduction abnormalities -continue to monitor (2) Thrombocytopenia Code(s): D69.6 - THROMBOCYTOPENIA, UNSPECIFIED Status: Acute (3) Lymphopenia Status: Acute - Plan Continue Remdesivir for total of 5 days Continue dexamethasone/ vit C/zinc/vitD. Downtitrate HFNC to keep oxygen saturation >92%
[2020-03-07] MEDS: REMDESIVIR (EUA) 100 MG in Sodium Chloride 0.9% 250 ML 230 ML IV SCH (17:07)
[2020-03-07] MEDS: Acetaminophen 325 MG TAB PO PRN (20:29)
[2020-03-08 05:33] LABS: ALT (SGPT) 70 U/L (8-55); AST (SGOT) 25 U/L (5-34); Albumin 3.7 g/dL (3.5-5.0); Alkaline Phosphatase 53 U/L (40-110); Bilirubin, Direct 0.3 mg/dL (0.1-0.3); Bilirubin, Total 0.6 mg/dL (0.2-1.2); Protein, Total 6.5 g/dL (6.0-8.3)
[2020-03-08] MEDS: Zinc Sulfate 220 MG CAP PO SCH (07:27)
[2020-03-08] MEDS: Ascorbic Acid 500 mg Chewable Tablet PO SCH (07:27)
[2020-03-08] MEDS: Dexamethasone 4 mg/ml Vial SLOW IVP SCH (07:27)
[2020-03-08] MEDS: Cholecalciferol 1,000 UNITS (25 MCG) TAB PO SCH (07:27)
[2020-03-08] MEDS: Enoxaparin Sodium 40 MG/0.4 ML SYRINGE SC SCH ×2 (07:28→19:17)
[2020-03-08] MEDS: Acetaminophen 325 MG TAB PO PRN (14:21)
[2020-03-08] MEDS: REMDESIVIR (EUA) 100 MG in Sodium Chloride 0.9% 250 ML 230 ML IV SCH (16:26)
--- NOTE | 2020-03-08 20:43 | PDOC.HOSPP ---
- Subjective Encounter Date: 03/08/20 Encounter Time: 09:00 Subjective: no overnight events. this morning, breathing and oxygen demand much improved. Patient eating breakfast without oxygen supplemntation without shortness of breath, was requested to put oxygen back on for now. Has no complaints. Pending DC 03/09 - Objective Vital Signs & Weight: Vital Signs (12 hours) Temp Pulse Resp BP Pulse Ox 03/08/20 16:26 56 L 25 H 110/70 95 03/08/20 12:24 98.7 F 61 28 H 111/49 L 97 Weight Weight 254 lb 6.4 oz I&O: 03/07/20 03/08/20 03/09/20 06:59 06:59 06:59 Intake Total 1340 600 600 Output Total 1500 1050 380 Balance -160 -450 220 Result Diagrams: 03/05/20 04:29 03/05/20 04:28 Hospitalist ROS - Review of Systems Constitutional: denies: fever, chills, sweats, weakness, malaise, other Respiratory: reports: cough, dry. denies: shortness of breath, hemoptysis, SOB with excertion, pleuritic pain, sputum, wheezing, other Cardiovascular: denies: chest pain, palpitations, orthopnea, paroxysmal noc. dyspnea, edema, light headedness, other Gastrointestinal: denies: nausea, vomiting, abdominal pain, diarrhea, constipation, melena, hematochezia, other - Medication Medications: Active Medications Generic Name Dose Route Start Last Admin Trade Name Freq PRN Reason Stop Dose Admin Acetaminophen 650 mg 03/02/20 16:29 03/08/20 14:21 Tylenol PO 650 mg Q4H PRN Administration Headache/Fever/Mild Pain (1-3) Albuterol Sulfate 1 puff 03/04/20 00:06 03/06/20 00:42 Proventil Hfa INH 1 puff Q8H PRN Administration Wheezing Ascorbic Acid 1,000 mg 03/02/20 09:00 03/08/20 07:27 Vitamin C PO 1,000 mg DAILY SAW Administration Cholecalciferol 1,000 units 03/03/20 09:00 03/08/20 07:27 Vitamin D3 PO 1,000 units DAILY SAW Administration Dexamethasone 6 mg 03/03/20 09:00 03/08/20 07:27 Decadron SLOW IVP 6 mg DAILY SAW Administration Enoxaparin Sodium 40 mg 03/02/20 21:00 03/08/20 19:17 Lovenox SC 40 mg BID SAW Administration Pantoprazole Sodium 40 mg 03/03/20 09:00 03/08/20 07:27 Protonix PO 40 mg DAILY SAW Administration Sodium Chloride 10 ml 03/03/20 09:00 03/08/20 19:17 Flush - Normal Saline IVF 10 ml Q12HR SAW Administration Sodium Chloride 10 ml 03/03/20 06:39 03/05/20 16:20 Flush - Normal Saline IVF 10 ml PRN PRN Administration Saline Flush Zinc Sulfate 220 mg 03/03/20 09:00 03/08/20 07:27 Zinc Sulfate PO 220 mg DAILY SAW Administration - Exam General Appearance: NAD, awake alert Heart: no murmur, no gallops, no rubs Heart - other findings: bradycardic Respiratory: CTAB, no wheezes, no rales, no ronchi Gastrointestinal: soft, non-tender, non-distended, normal bowel sounds Extremities: no edema Hosp A/P - Plan (1) Pneumonia due to COVID-19 virus Code(s): U07.1 - COVID-19; J12.89 - OTHER VIRAL PNEUMONIA Status: Acute #asymptomatic bradycardia -case reports of covid-induced transient bradycardia have been reported -telemetry showing sinus bradycardia without conduction abnormalities -continue to monitor (2) Thrombocytopenia Code(s): D69.6 - THROMBOCYTOPENIA, UNSPECIFIED Status: Acute (3) Lymphopenia Status: Acute - Plan Continue Remdesivir for total of 5 days Continue dexamethasone/ vit C/zinc/vitD for total of 10 days or until discharge Downtitrate HFNC to keep oxygen saturation >92% ELOS: 1 night
[2020-03-09 05:46] LABS: ALT (SGPT) 70 U/L (8-55); AST (SGOT) 30 U/L (5-34); Albumin 3.6 g/dL (3.5-5.0); Alkaline Phosphatase 52 U/L (40-110); Anion Gap 13 mmol/L (10-20); BUN (Urea Nitrogen) 17 mg/dL (8.9-20.6); Bilirubin, Direct 0.2 mg/dL (0.1-0.3); Bilirubin, Total 0.6 mg/dL (0.2-1.2); Calc. Creatinine Clearance 217 mL/min (70-130); Calcium 8.8 mg/dL (7.8-10.44); Carbon Dioxide 25 mmol/L (22-29); Chloride 102 mmol/L (98-107); Estimated GFR-MDRD Greater than 90; Glucose 100 mg/dL (70-105); Potassium 4.1 mmol/L (3.5-5.1); Protein, Total 6.6 g/dL (6.0-8.3); Sodium 136 mmol/L (136-145)
[2020-03-09] MEDS: Ascorbic Acid 500 mg Chewable Tablet PO SCH (07:36)
[2020-03-09] MEDS: Zinc Sulfate 220 MG CAP PO SCH (07:36)
[2020-03-09] MEDS: Cholecalciferol 1,000 UNITS (25 MCG) TAB PO SCH (07:36)
[2020-03-09] MEDS: Dexamethasone 4 mg/ml Vial SLOW IVP SCH (07:37)
[2020-03-09] MEDS: Enoxaparin Sodium 40 MG/0.4 ML SYRINGE SC SCH (07:37)
[2020-03-09 15:38] VITALS: BP 112/68; TEMP 98.5
--- NOTE | 2020-03-10 05:40 | PQF ---
Dear : Олег Martinez Date : 03/10 Please exercise your independent, professional judgment in responding to the clarification form. Clinical indicators are provided on the bottom of this form for your review Can you please further clarify if Sepsis is ruled in or ruled out? [ ] Ruled in diagnosis [ ] Continue to treat [ ] Resolved [ ] Ruled out diagnosis [ ] Improving [ ] Cannot rule out diagnosis [ ] Other diagnosis please specify [ x ] Unable to determine To be completed by CDI/Coding staff for physician review: w Present w Clinical Indicators - Signs / Symptoms / Labs w Results and Location in Medical Record w [ x ] w 8 days cough, dyspnea and fever w ED Provider pg.1 w [ x ] w VS: BP 136/83, Pulse 105, RR 38, Temp: 102.7 w ED Provider pg.1 w [x ] w Sepsis w ED Provider pg.2 w [ x ] w Severe Covid pneumonia w Consult pg.2 w [ x ] w WBC 6.7, 10.1, 12.7H, 8.4, 6.9 w Laboratory 03/02 w [ x ] w Lactic acid 1.2 w Laboratory 03/02 w [ x ] w Chest Xray:possible airspace consolidation throughout the lungs w Chest Xray 03/02 w [ x ] w Blood culture: no growth w Collected 03/02 w Present w Risk Factors w Results and Location in Medical Record w [ x ] w former smoker w ED Provider pg.1 w [ x ] w COVID positive w H and P pg.2 w [ x ] w Morbid Obese w Hospitalist PN w Present w Treatments w Results and Location in Medical Record w [ x ] w Chest X ray w Chest X ray report w [x ] w Infectious Consult w 03/04 Dr. Lopez w [ x ] w Remdesivir 100mg IV w MAR w [ x ] w Decadron 6mg IV slow w MAR w [ x ] w O2 Supplementation w Consult Dr. Lopez pg.2 w [ x ] w Vancomycin 1.5g IV w MAR w [ x ] w Azithromycin 500mg IV w MAR w [ x ] w Isolation w PN 03/03 w [ x ] w Blood culture w Collected 03/02 [facility] [employer] Signature: Abelconnie Lancelazaro Kwon Phone #: [phone] Date: 03/10/20 This is a permanent part of the Medical Record [facility]
--- NOTE | 2020-03-10 15:00 | DIS ---
DATE OF ADMISSION: 03/02/2020 DATE OF DISCHARGE: 03/09/2020 HOSPITAL COURSE: Mr. Graham is a 39-year-old male, who presented with acute fever and shortness of breath. He was diagnosed with COVID pneumonia. He was initially requiring high-flow nasal cannula. Infectious Disease was consulted and the patient was started on Remdesivir and Decadron. He improved through his inpatient stay and was breathing well on room air on the day of discharge, though his saturations were in the low 80s. He was discharged on home oxygen and was educated regarding continued isolation and treatment with Decadron. On the day of discharge, he was hemodynamically stable and had no complaints. PHYSICAL EXAMINATION: VITAL SIGNS: Blood pressure 112/68, pulse 67, respirations 20, oxygen saturation 97% on room air, and temperature 98.5 Fahrenheit. GENERAL: Lying comfortably in bed. Awake and alert. HEART: No murmurs, gallops, or rubs. Bradycardic (asymptomatic bradycardia). RESPIRATORY: Clear to auscultation bilaterally. No wheezing, rales, or rhonchi. GI: Soft, nontender, and nondistended. Normal bowel sounds. EXTREMITIES: No edema. MEDICATION LIST: New medications; 1. Tylenol 650 mg q.4 hours p.r.n. headache, fever, or mild pain. 2. Benzonatate 100 mg p.o. t.i.d. p.r.n. cough. 3. Decadron 6 mg p.o. daily for four additional days. Old medications, no old medications. Job ID: [id number]
== END 2020-03-09 16:08 | disposition home or self-care (01) | DRG 177 ==
LOC: ERS 08:27 → 2SW 10:58
PROVIDERS: ADMIT Internal Medicine; ATTEND Internal Medicine
PROC: 8E0ZXY6 Isolation (ICD-10-PCS; principal; 2020-03-02)
DX: U07.1 COVID-19 (principal); J12.89 Other viral pneumonia; Z68.41 Body mass index [BMI] 40.0-44.9, adult; E66.01 Morbid (severe) obesity due to excess calories; D69.6 Thrombocytopenia, unspecified; D72.810 Lymphocytopenia; Z87.891 Personal history of nicotine dependence
CPT/HCPCS: 36415; 71045; 80048; 80053; 80076; 80202; 81003; 81015; 82550; 82728; 82805; 83605; 83735; 84484; 85025; 85379; 86140; 87040; 87149; 93005; 93010; 96365; 96375; J0456; J0696; J1100; J1650; J2405; J2930; J3370; J3490; J7030; J7050; U0002